=== PATIENT | female | born 1990 | race Two or more races ===

== ENCOUNTER 2022-09-30 08:33 | Emergency (ER) | payer OTHER ==
[~2022-09-30] VITALS: Ht 160 cm; Wt 72.6 kg
[2022-09-30] MEDS ORDERED: LAMISIL PO (08:57)
== END 2022-09-30 17:45 | disposition home or self-care (01) ==
LOC: ER 08:33
DX: R10.2 Pelvic and perineal pain (principal); K52.89 Other specified noninfective gastroenteritis and colitis